=== PATIENT | male | born 1990 | race African-American/Black ===

== ENCOUNTER 2018-08-27 14:51 | Emergency (ER) | payer MEDICAID ==
[~2018-08-27] VITALS: Ht 185.4 cm; Wt 106.0 kg
[2018-08-27] MEDS ORDERED: HYDROCODONE/ACETAMINOPHEN 5/325MG TABLET PO ONE (15:45)
[2018-08-27] MEDS ORDERED: MORPHINE SULFATE 4 MG/ML CPJ (NOT FOR IM USE) IV ONE (17:15)
[2018-08-27 17:55] VITALS: BP 155/95
== END 2018-08-27 21:47 | disposition home or self-care (01) ==
LOC: ER 14:54
DX: M25.562 Pain in left knee (principal); M25.561 Pain in right knee; W10.8XXA Fall (on) (from) other stairs and steps, initial encounter; Z91.81 History of falling; Y93.89 Activity, other specified; Y92.018 Other place in single-family (private) house as the place of occurrence of the external cause
CPT/HCPCS: 73562; 96374; 99283; J2270; L1830